=== PATIENT | male | born 1945 | race Caucasian/White ===

== ENCOUNTER 2017-08-20 08:29 | Day surgery (SDC) | payer MEDICARE, OTHER ==
[~2017-08-20 08:29] MED LIST: CIPROFLOXACIN HCL 500 MG TABLET PO PRN
[2017-08-20] MEDS ORDERED: LIDOCAINE HCL 10 APPL CARTRIDGE TP ONE (09:00)
[2017-08-20 09:24] VITALS: BP 137/83
== END 2017-08-20 08:30 | disposition home or self-care (01) ==
LOC: AMB 08:29
PROVIDERS: ATTEND Urology
PROC: 3E1K88X Irrigation of Genitourinary Tract using Irrigating Substance, Via Natural or Artificial Opening Endoscopic, Diagnostic (ICD-10-PCS; 2017-08-20)
PROC: 0TJB8ZZ Inspection of Bladder, Via Natural or Artificial Opening Endoscopic (ICD-10-PCS; principal; 2017-08-20 09:00)
DX: N40.1 Benign prostatic hyperplasia with lower urinary tract symptoms (principal); N13.8 Other obstructive and reflux uropathy; N32.89 Other specified disorders of bladder; Z87.891 Personal history of nicotine dependence; Z68.23 Body mass index [BMI] 23.0-23.9, adult

== ENCOUNTER 2017-08-27 12:20 | Day surgery (SDC) | payer MEDICARE, OTHER ==
[~2017-08-27 12:20] MED LIST changes: +ACETAMINOPHEN WITH CODEINE 1 EACH TABLET PO PRN; -CIPROFLOXACIN HCL 500 MG TABLET PO PRN; +LEVOFLOXACIN/D5W 500 MG/100 ML BAG IV PRN; +OXYBUTYNIN CHLORIDE 5 MG TABLET PO PRN; +RINGER'S SOLUTION,LACTATED 1,000 ML IV PRN
[2017-08-27] MEDS ORDERED: RINGER'S SOLUTION,LACTATED 1,000 ML IV ONE (12:55)
[2017-08-27 16:09] VITALS: BP 136/78
== END 2017-08-27 12:21 | disposition home or self-care (01) ==
LOC: AMB 12:20
PROVIDERS: ATTEND Urology
PROC: 0TBB8ZX Excision of Bladder, Via Natural or Artificial Opening Endoscopic, Diagnostic (ICD-10-PCS; 2017-08-27)
PROC: 0VB08ZX Excision of Prostate, Via Natural or Artificial Opening Endoscopic, Diagnostic (ICD-10-PCS; principal; 2017-08-27 13:25)
DX: N40.1 Benign prostatic hyperplasia with lower urinary tract symptoms (principal); N13.8 Other obstructive and reflux uropathy; N32.89 Other specified disorders of bladder; Z87.891 Personal history of nicotine dependence; Z68.23 Body mass index [BMI] 23.0-23.9, adult